=== PATIENT | male | born 1990 | race Caucasian/White ===

== ENCOUNTER 2020-09-24 12:12 | Emergency (ER) | payer OTHER ==
[~2020-09-24] VITALS: Ht 177.8 cm; Wt 62.6 kg
[2020-09-24 12:28] VITALS: Ht 177.8 cm; Wt 62.6 kg
[2020-09-24 14:20] VITALS: BP 126/83
== END 2020-09-24 14:20 | disposition home or self-care (01) ==
LOC: ED 12:12
DX: N34.2 Other urethritis (principal)
CPT/HCPCS: 87491; 87591; J0696